=== PATIENT | male | born 1990 | race African-American/Black ===

== ENCOUNTER 2022-04-01 18:14 | Emergency (ER) | payer MEDICAID ==
[~2022-04-01] VITALS: Ht 188 cm; Wt 136.0 kg
[2022-04-01] MEDS ORDERED: LIDOCAINE 5% PATCH TOP SCH (19:45)
[2022-04-01] MEDS ORDERED: IBUPROFEN 600MG TABLET PO ONE (19:45)
[2022-04-01 19:50] VITALS: BP 125/80
[2022-04-01 20:07] LABS: CLARITY URINE CLEAR (CLEAR); COLOR URINE YELLOW (YELLOW); KETONES URINE 3+ (NEGATIVE); LEUKOCYTE ESTERASE URINE NEGATIVE (NEGATIVE); NITRITE URINE NEGATIVE (NEGATIVE); OCCULT BLOOD URINE NEGATIVE (NEGATIVE); PROTEIN URINE NEGATIVE (NEGATIVE); SPECIFIC GRAVITY URINE 1.027 (1.005-1.030)
[2022-04-01] MEDS ORDERED: IBUP-2029 MT (20:40)
[2022-04-01] MEDS ORDERED: LIDO700A15 TP (20:40)
[2022-04-01] MEDS ORDERED: BACL-141 MT (20:40)
== END 2022-04-01 20:57 | disposition home or self-care (01) ==
LOC: ER 18:14
DX: M54.50 Low back pain, unspecified (principal); M62.838 Other muscle spasm; Z13.9 Encounter for screening, unspecified
CPT/HCPCS: 81003; 99283

== ENCOUNTER 2022-10-04 16:13 | Emergency (ER) | payer SELFPAY ==
[~2022-10-04] VITALS: Ht 188 cm; Wt 122.0 kg
[~2022-10-04 16:13] MED LIST: BACL-141 MT; IBUP-2029 MT; LIDO700A15 TP
[2022-10-04 17:04] VITALS: BP 142/70
[2022-10-04] MEDS ORDERED: ACETAMINOPHEN 325MG TABLET PO ONE (20:45)
[2022-10-04] MEDS ORDERED: KETOROLAC 30MG/ML VIAL IM ONE (20:45)
[2022-10-04] MEDS ORDERED: [UNRECOGNIZED DRUG - OTHER] PO (21:34)
== END 2022-10-04 21:48 | disposition home or self-care (01) ==
LOC: ER 16:13
DX: J06.9 Acute upper respiratory infection, unspecified (principal); F32.9 Major depressive disorder, single episode, unspecified; F20.9 Schizophrenia, unspecified
CPT/HCPCS: 96372; 99283; J1885